=== PATIENT | male | born 1965 | race Hispanic/Latino ===

== ENCOUNTER 2024-10-29 17:47 | Emergency (ER) | payer OTHER ==
--- OUTSIDE RECORDS SUMMARY | 2024-10-29 17:51 | XMS REPORT | Continuity of Care Document ---
Author Name Unknown Address [address] [facility] [address] [place] [address] [facility] [place] Address [address] [facility] [address] [place] [address] Care Team Providers Care Senior Accounting Specialist Name Role Phone Yaya Basurto Attending Clinician Unavailable Haylie Niño Attending Clinician Unavailable Andreina Ellsworth Attending Clinician Unavailable Elvin Niño Attending Clinician Unavailable Yaya Basurto Admitting Clinician Unavailable Payers Payer Name Policy Type Policy Number Effective Date Expirati on Date Source [facility] Individual Exchange Benefit Plan [id number] 2023 00:00:00 [facility] Ambetter from [facility] [id number] [facility] Ambetter from [facility] [id number] [facility] Problems Condition Name Condition Details Condition Category Status Onset Date Resolution Date Last Treatment Date Treating Clinician Comments Source 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 Coronary artery calcificat ion Problem [facility] [id number] Ulnar neuropathy of left upper extremity Problem [facility] [id number] Sciatica of right side Problem [facility] [id number] Vitiligo Problem Active Commo n [facility] [id number] History of colon polyps Problem [facility] [id number] Diverticul osis of colon without diverticul itis Problem [facility] [id number] Mixed hyperlipid emia Problem [facility] Social History Social Habit Start Date Stop Date Quantity Comments Source History of Tobacco Use [facility] Sex Assigned At [facility] Smoking Status Start Date Stop Date Source Never Smoker [facility] Medications Ordered Medication Name Filled Medication Name Start Date Stop Date Current Medication? Ordering Clinician Indication Dosage Frequency Signature (SIG) Comments Components Source Naproxen 500 MG Naproxen 500 MG 09-19 00:00: 00 No QD Naproxen 500 MG Gabapentin 300 MG Gabapentin 300 MG 09-19 00:00: 00 No 1{capsu le} QD Gabapentin 300 MG Cyclobenzap rine HCl 10 MG Cyclobenzap rine HCl 10 MG 09-19 00:00: 00 No 1{table t_at_be dtime_a s_neede d} QD Cyclobenza susana HCl 10 MG Vital Signs Vital Name Observation Time Observation Value Comments S ource height 2024-09-19 09:45:00 70 [in_i] Commo n [facility] weight 2024-09-19 09:45:00 201 [lb_av] Comm on [facility] temperature 2024-09-19 09:45:00 97.8 [degF] Com mon [facility] bmi 2024-09-19 09:45:00 28.84 kg/m2 Comm on [facility] oximetry 2024-09-19 09:45:00 98 % Commo n [facility] respiratory rate 2024-09-19 09:45:00 16 /min [facility] blood pressure systolic 2024-09-19 09:45:00 132 mm[Hg] [facility] blood pressure diastolic 2024-09-19 09:45:00 76 mm[Hg] [facility] height 2023-12-07 12:00:00 70 [in_i] Commo n [facility] weight 2023-12-07 12:00:00 206 [lb_av] Comm on [facility] bmi 2023-12-07 12:00:00 29.55 kg/m2 Comm on [facility] height 2023-11-17 10:00:00 70 [in_i] Commo n [facility] weight 2023-11-17 10:00:00 206.8 [lb_av] Co mmon [facility] temperature 2023-11-17 10:00:00 96.5 [degF] Com mon [facility] bmi 2023-11-17 10:00:00 29.67 kg/m2 Comm on [facility] oximetry 2023-11-17 10:00:00 98 % Commo n [facility] respiratory rate 2023-11-17 10:00:00 16 /min Common [facility] blood pressure systolic 2023-11-17 10:00:00 138 mm[Hg] Common [facility] blood pressure diastolic 2023-11-17 10:00:00 80 mm[Hg] Common [facility] height 2023-08-05 08:00:00 70 [in_i] Commo n [facility] weight 2023-08-05 08:00:00 204 [lb_av] Comm on [facility] temperature 2023-08-05 08:00:00 97.8 [degF] Com mon [facility] bmi 2023-08-05 08:00:00 29.27 kg/m2 Comm on [facility] oximetry 2023-08-05 08:00:00 98 % Commo n [facility] respiratory rate 2023-08-05 08:00:00 16 /min Common [facility] blood pressure systolic 2023-08-05 08:00:00 136 mm[Hg] [facility] blood pressure diastolic 2023-08-05 08:00:00 82 mm[Hg] Common [facility] height 2020-12-03 09:00:00 70 [in_i] Commo n [facility] weight 2020-12-03 09:00:00 199.8 [lb_av] Co mmon [facility] temperature 2020-12-03 09:00:00 98.4 [degF] Com mon [facility] bmi 2020-12-03 09:00:00 28.67 kg/m2 Comm on [facility] height 2020-11-05 09:00:00 70 [in_i] Commo n [facility] weight 2020-11-05 09:00:00 199.8 [lb_av] Co mmon [facility] temperature 2020-11-05 09:00:00 97.8 [degF] Com mon [facility] bmi 2020-11-05 09:00:00 28.67 kg/m2 Comm on [facility] oximetry 2020-11-05 09:00:00 96 % Commo n [facility] blood pressure systolic 2020-11-05 09:00:00 140 mm[Hg] [facility] blood pressure diastolic 2020-11-05 09:00:00 86 mm[Hg] [facility] Encounters Start Date/Time End Date/Time Encounter Type Admission Type Attending Clinicians Care Facility Care Department Encounter ID Source 2024-06-05 10:00:00 Inpatient Yaya Hackett [facility] [place] [id number] 13 [facility] 2024-04-19 08:25:00 Outpatient Haylie Niño [facility] [id number] [facility] 2024-01-27 07:21:00 Outpatient Haylie Niño [facility] [id number] [facility] 2023-12-08 08:02:00 Outpatient Haylie Niño [facility] [id number] [facility] 2023-12-03 09:38:01 Outpatient Haylie Niño [facility] [id number] [facility] 2023-11-16 09:30:00 Outpatient Haylie Niño [facility] [id number] [facility] 2023-06-23 15:12:00 Outpatient Haylie Niño [facility] [id number] [facility] 2023-06-22 14:06:00 Outpatient [facility] [id number] [facility] 2023-06-21 10:25:03 Outpatient [facility] [id number] [facility] 2023-05-25 10:54:00 Outpatient [facility] [id number] [facility] 2021-11-05 11:47:02 Outpatient Ellsworth, Na [facility] [id number] [facility] 2021-11-04 15:11:00 Outpatient Ellsworth, Na [facility] [id number] [facility] 2021-04-09 14:04:01 Outpatient Ellsworth, Na [facility] [id number] [facility] 2021-04-09 13:51:10 Outpatient [facility] [id number] [facility] 2021-04-09 13:41:46 Outpatient [facility] [id number] [facility] 2021-04-09 13:27:06 Outpatient Elvin Niño [facility] [id number] [facility] 2024-09-19 00:00:00 2024-09-19 00:00:00 OFFICE VISIT ESTAB PT LEVEL 3 [facility] [id number] [facility] 2024-04-19 00:00:00 2024-04-19 00:00:00 (TEL) [facility] [id number] [facility] 2024-01-28 00:00:00 2024-01-28 00:00:00 (TEL) [facility] [id number] [facility] 2023-12-13 00:00:00 2023-12-13 00:00:00 (TEL) [facility] [id number] [facility] 2023-12-08 00:00:00 2023-12-08 00:00:00 (TEL) [facility] [id number] [facility] 2023-12-07 00:00:00 2023-12-07 00:00:00 OFFICE VISIT ESTAB PT LEVEL 4 [facility] [id number] [facility] 2023-11-26 00:00:00 2023-11-26 00:00:00 (TEL) [facility] [id number] [facility] 2023-11-17 00:00:00 2023-11-17 00:00:00 OFFICE VISIT ESTAB PT LEVEL 3 [facility] [id number] [facility] 2023-08-16 00:00:00 2023-08-16 00:00:00 (TEL) [facility] [id number] [facility] 2023-08-05 00:00:00 2023-08-05 00:00:00 PREV VISIT EST AGE 40-64 [facility] [id number] [facility] 2020-12-03 00:00:00 2020-12-03 00:00:00 OFFICE VISIT EST PT LEVEL 3 [facility] [id number] [facility] 2020-11-05 00:00:00 2020-11-05 00:00:00 PREV VISIT NEW AGE 40-64 [facility] [id number] [facility] Results Test Description Test Time Test Comments Results Result Co mments Source ColonoscopyColonoscopy
[2024-10-29] MEDS ORDERED: KETOROLAC 30 MG/ML INJ ONE (18:21)
[2024-10-29] MEDS ORDERED: GABAPENTIN 300 MG CAP ONE (18:22)
[2024-10-29 18:35] LABS: Absolute Lymphocytes (CBC) 2.4 K/uL (0.7-4.9); Hematocrit 46.0 % (39.6-49.0); Hemoglobin 15.6 g/dL (13.6-17.9); MCH 31.0 pg (27.0-35.0); MCHC 34.0 g/dL (32.0-36.0); MCV 91.2 fL (80-100); MPV 9.4 fL (7.6-11.3); Nucleated RBC Absolute Count 0.0 (0-0); Nucleated Red Blood Cells % 0.1 % (0-0); RBC Red Blood Cell Count 5.04 M/uL (4.33-5.43); White Blood Count 8.10 thou/uL (4.3-10.9)
[2024-10-29 18:57] LABS: Anion Gap 10.0 mEq/L (5.0-15.0); BUN Blood Urea Nitrogen 11.0 mg/dL (7-18); Glucose Level 86.0 mg/dL (74-106)
--- NOTE | 2024-10-29 19:02 | RAD REPORT ---
EXAMINATION: Pelvis Wo Cont CLINICAL INDICATION: Male, 58 years old. right low back/hip pain TECHNIQUE: CT pelvis was performed, without IV contrast, as per department protocol. Axial, sagittal and coronal reconstructions were obtained. One or more of the following dose reduction techniques were used: Automated exposure control, adjustment of the mA and/or kV according to patient size, and/ or iterative reconstruction. Unless otherwise specified, incidental findings do not require dedicated imaging follow-up. [id number]. IV CONTRAST: Not administered. COMPARISON: No prior exam. FINDINGS: SMALL BOWEL/COLON: Small bowel has normal course and caliber. No colonic wall thickening or pericolon ic inflammatory changes.Diverticulosis. LYMPH NODES: No lymphadenopathy. ABDOMINAL AORTA AND OTHER VESSELS: Normal caliber aorta and IVC. PERITONEUM: No abnormal free fluid. No free air. ABDOMINAL WALL: No significant abnormality. REPRODUCTIVE ORGANS: No pathologic process. URINARY BLADDER: Underdistended but grossly unremarkable. MUSCULOSKELETAL: No acute or suspicious osseous abnormality.Degenerative changes are present in the l ower spine at L4-5 and L5-S1 where there is bilateral neural foraminal narrowing. Mild bilateral acetabular degenerative changes. ADDITIONAL FINDINGS: None. IMPRESSION: No acute findings in the pelvis. Degenerative changes are present lower spine. This could be a source of a radiculopathy. MRI could better assess.
[2024-10-29 19:04] LABS: Potassium 4.0 mEq/L (3.5-5.1)
--- NOTE | 2024-10-29 19:23 | ER ---
Nurse's Notes [facility] Name: Keven Vargas Age: 58 yrs Sex: Male : 1965 Arrival Date: 10/29/2024 Time: 17:47 Bed 5 Private MD: Diagnosis: Lumbago with sciatica, right side Presentation: 10/29 18:11 Chief complaint: Patient states: he has been having right hip pain that radiates down ap3 his right leg for a few months. patient states his pain is "alright" right now but at its worst is a 7/10 on the pain scale. patient also reports that when he lays down to go to bed his left hand will go numb and having a burning feeling "like someone is stepping on it", also for a few months. Coronavirus screen: At this time, the client does not indicate any symptoms associated with coronavirus-19. Ebola Screen: No symptoms or risks identified at this time. Initial Sepsis Screen: Does the patient meet any 2 criteria? No. Patient's initial sepsis screen is negative. Does the patient have a suspected source of infection? No. Patient's initial sepsis screen is negative. Risk Assessment: Do you want to hurt yourself or someone else? Patient reports no desire to harm self or others. Onset of symptoms is unknown. 18:11 Method Of Arrival: Ambulatory ap3 18:11 Acuity: OBI 3 ap3 Triage Assessment: 18:13 General: Appears in no apparent distress. Behavior is calm, cooperative, appropriate ap3 for age. Pain: Complains of pain in right hip Pain radiates to right foot and right leg Pain currently is 0 out of 10 on a pain scale. at worst was 7 out of 10 on a pain scale. Pain began months ago. Neuro: Level of Consciousness is awake, alert, obeys commands, Oriented to person, place, time, situation, Appropriate for age Gait is steady, Speech is normal. Neuro: Reports numbness in left hand since months ago. Cardiovascular: Patient's skin is warm and dry. Respiratory: Airway is patent Respiratory effort is even, unlabored, Respiratory pattern is regular, symmetrical. Historical: - Allergies: 18:13 No Known Allergies; ap3 - Home Meds: 18:13 None [Active]; ap3 - PMHx: 18:13 None; ap3 - Immunization history:: Adult Immunizations up to date. - Infectious Disease History:: Denies. - Social history:: Smoking status: Patient denies any tobacco usage or history of. Screenin:14 [facility] ED Fall Risk Assessment (Adult) History of falling in the last 3 months, ap3 including since admission No falls in past 3 months (0 pts) Confusion or Disorientation No (0 pts) Intoxicated or Sedated No (0 pts) Impaired Gait No (0 pts) Mobility Assist Device Used No (0 pt) Altered Elimination No (0 pt) Score/Fall Risk Level 0 - 2 = Low Risk Oriented to surroundings, Maintained a safe environment, Educated pt \\T\\ family on fall prevention, incl call for assistance when getting out of bed, Assessed \\T\\ reinforced patient's understanding of fall precautions, Hourly rounding (assess needs \\T\\ fall precautionary measures) done, Used ambulatory aids as needed (educated on \\T\\ assisted with). Abuse screen: Denies threats or abuse. Nutritional screening: No deficits noted. Tuberculosis screening: No symptoms or risk factors identified. Assessment: 18:29 General: Appears in no apparent distress. Behavior is calm, cooperative. Pain: iw Complains of pain in right low back Pain radiates to right leg Pain currently is 6 out of 10 on a pain scale. Neuro: Level of Consciousness is awake, alert, obeys commands, Oriented to person, place, time, situation, Moves all extremities. Full function. Cardiovascular: Patient's skin is warm and dry. Respiratory: Respiratory effort is even, unlabored, Respiratory pattern is regular, symmetrical. GI: Abdomen is non-distended. Derm: Skin is intact, is healthy with good turgor. Musculoskeletal: Range of motion: intact in all extremities. Vital Signs: 18:11 BP 141 / 89; Pulse 96; Resp 18; Temp 98.4; Pulse Ox 98% on R/A; Weight 95.25 kg; ap3 19:27 BP 131 / 82; Pulse 73; Resp 18; Pulse Ox 98% ; cp4 ED Course: 17:51 Patient arrived in ED. ts1 17:51 Ro Barros PA-C is PHCP. sb4 17:51 Raghav Abad MD is Attending Physician. sb4 18:09 Alma Keane RN is Primary Nurse. iw 18:13 Triage completed. ap3 18:15 Arm band placed on right wrist. ap3 18:28 Initial lab(s) drawn, by me, sent to lab. Inserted saline lock: 20 gauge in right iw antecubital area, using aseptic technique. 18:[address] In Process Unspecified. EDMS 19:32 IV discontinued, intact, bleeding controlled, No redness/swelling at site. Pressure rk3 dressing applied. 19:38 Bed in low position. Call light in reach. Side rails up X 1. Provided Education on: cp4 sciatica. 19:38 No provider procedures requiring assistance completed. cp4 Administered Medications: 18:35 Drug: Gabapentin PO 300 mg PO once Route: PO; jl7 19:03 Follow up: Response: No adverse reaction iw 18:36 Drug: Ketorolac IVP 15 mg IVP once Route: IVP; Site: right antecubital; jl7 19:03 Follow up: Response: No adverse reaction; Marked relief of symptoms iw 18:37 Drug: Decadron - Dexamethasone IVP 10 mg IVP once Route: IVP; Site: right antecubital; jl7 19:03 Follow up: Response: No adverse reaction iw 19:27 Drug: Hydrocodone-Acetaminophen PO (7.5 mg-325 mg) 1 tabs PO once Route: PO; cp4 19:28 Follow up: Response: No adverse reaction cp4 19:27 Drug: Diazepam PO 2 mg PO once Route: PO; cp4 19:28 Follow up: Response: No adverse reaction cp4 Medication: 18:31 VIS not applicable for this client. iw Outcome: 19:23 Discharge ordered by . sb4 19:38 Discharged to home ambulatory, cp4 19:38 Condition: stable 19:38 Discharge instructions given to patient, family, Instructed on discharge instructions, follow up and referral plans. medication usage, Demonstrated understanding of instructions, follow-up care, medications, Prescriptions given X 3, 19:39 Patient left the ED. cp4 Signatures: Dispatcher [employer] EDMS Alma Keane RN RN iw Marilin Anderson RN RN jl7 Neha Garcia RN RN ap3 Ro Barros, PA-C PA-C sb4 Rachell Rocha PAS PAS ts1 Erin Myers cp4 Reji Asif rk3 Corrections: (The following items were deleted from the chart) 18:13 18:13 Allergies: Aspirin; ap3 ap3
[2024-10-29] MEDS ORDERED: DIAZEPAM 2 MG TABLET ONE (19:24)
[2024-10-29] MEDS ORDERED: HYDROCODONE/APAP 7.5/325 MG TAB ONE (19:24)
--- NOTE | 2024-10-29 19:24 | EDPHYS ---
Physician Documentation [facility] Name: Keven Vargas Age: 58 yrs Sex: Male : 1965 Arrival Date: 10/29/2024 Time: 17:47 Bed 5 Private MD: ED Physician Raghav Abad HPI: 10/29 18:26 This 58 yrs old Male presents to ER via Ambulatory with complaints of Leg Pain.sb4 18:26 Patient reports pain in his right lower back/hip for several months now that radiates sb4 down his leg. States that he saw his primary care, was diagnosed with sciatica, and given exercises to do and told to take anti-inflammatories. He states that these remedies do help sometimes, but the pain has persisted and it gets to the point where he cannot walk sometimes. Denies any bowel or bladder incontinence or saddle paresthesias. Does report intermittent numbness and tingling in his left hand. Historical: - Allergies: 18:13 No Known Allergies; ap3 - Home Meds: 18:13 None [Active]; ap3 - PMHx: 18:13 None; ap3 - Immunization history:: Adult Immunizations up to date. - Infectious Disease History:: Denies. - Social history:: Smoking status: Patient denies any tobacco usage or history of. ROS: 18:26 Constitutional: Negative for fever, chills, and weight loss, sb4 18:26 Back: Positive for pain at rest, radiated pain, of the right low back, 18:26 All other systems are negative, Exam: 18:26 Constitutional: This is a well developed, well nourished patient who is awake, alert, sb4 and in no acute distress. Head/Face: Normocephalic, atraumatic. Eyes: Extra-ocular motions intact. Periorbital areas with no swelling, redness, or edema. ENT: Mucous membranes moist. Respiratory: No increased work of breathing, no retractions or nasal flaring. Back: No spinal tenderness. No costovertebral tenderness. Full range of motion. Skin: Warm, dry with normal turgor. Normal color with no rashes, no lesions, and no evidence of cellulitis. Neuro: Awake and alert, GCS 15, oriented to person, place, time, and situation. Motor strength 5/5 in all extremities. Sensory grossly intact. 18:26 Back: normal spinal alignment noted, vertebral tenderness, is not appreciated, muscle spasm, is not present, Straight leg raises: of both lower extremities does not illicit pain, Vital Signs: 18:11 BP 141 / 89; Pulse 96; Resp 18; Temp 98.4; Pulse Ox 98% on R/A; Weight 95.25 kg; ap3 19:27 BP 131 / 82; Pulse 73; Resp 18; Pulse Ox 98% ; cp4 MDM: 17:51 Medical Screening Exam initiated sb4 18:29 Differential diagnosis: Sciatica, muscle strain, radiculopathy, herniated disc, sb4 fracture. 19:22 Data reviewed: vital signs, nurses notes, lab test result(s), radiologic studies, and sb4 as a result, I will discharge patient. Historians other than the Patient: Spouse/Significant Other: . Counseling: I had a detailed discussion with the patient and/or guardian regarding the historical points, exam findings, and any diagnostic results supporting the discharge/admit diagnosis, the presence of at least one elevated blood pressure reading (>120/80) during this emergency department visit, lab results, radiology results, the need for outpatient follow up, a neurosurgeon, to return to the emergency department if symptoms worsen or persist or if there are any questions or concerns that arise at home. 10/29 18:14 Order name: CBC with Diff; Complete Time: 18:38 sb4 10/29 18:14 Order name: BMP; Complete Time: 19:10 sb4 10/29 18:14 Order name: UA Rfx Henry Cult if indicated sb4 10/29 18:14 Order name: Pelvis Wo Cont CT; Complete Time: 19:10 sb4 10/29 18:14 Order name: IV Start; Complete Time: 18:31 sb4 Administered Medications: 18:35 Drug: Gabapentin PO 300 mg PO once Route: PO; jl7 19:03 Follow up: Response: No adverse reaction iw 18:36 Drug: Ketorolac IVP 15 mg IVP once Route: IVP; Site: right antecubital; jl7 19:03 Follow up: Response: No adverse reaction; Marked relief of symptoms iw 18:37 Drug: Decadron - Dexamethasone IVP 10 mg IVP once Route: IVP; Site: right antecubital; jl7 19:03 Follow up: Response: No adverse reaction iw 19:27 Drug: Hydrocodone-Acetaminophen PO (7.5 mg-325 mg) 1 tabs PO once Route: PO; cp4 19:28 Follow up: Response: No adverse reaction cp4 19:27 Drug: Diazepam PO 2 mg PO once Route: PO; cp4 19:28 Follow up: Response: No adverse reaction cp4 Disposition Summary: 10/29/24 19:23 Discharge Ordered Notes: Location: Home sb4 Problem: an ongoing problem sb4 Symptoms: have improved sb4 Condition: Stable sb4 Diagnosis - Lumbago with sciatica, right side sb4 Followup: sb4 - With: Private Physician - When: As needed - Reason: Further diagnostic work-up, Recheck today's complaints, Re-evaluation by your physician Discharge Instructions: - Discharge Summary Sheet sb4 - Sciatica sb4 - Back Exercises, Izex-ix-Joje sb4 Forms: - Patient Portal Instructions sb4 - Leadership Thank You Letter sb4 Prescriptions: - Prednisone 20 mg Oral Tablet - take 1 tablet ORAL route once daily for 5 days; 5 tablet; Refills: 0, Product sb4 Selection Permitted - Diclofenac Sodium 75 mg Oral Tablet Sustained Release - take 1 tablet ORAL route 2 times per day; 30 tablet; Refills: 0, Product sb4 Selection Permitted - methocarbamol 750 mg Oral tablet - take 1 tablet ORAL route 4 times per day; 20 tablet; Refills: 0, Product sb4 Selection Permitted Signatures: Dispatcher [employer] EDMS Marilin Anderson RN RN jl7 Neha Garcia RN RN joel3 Ro Barros PA-C PASandy sb4 Erin Myers 4 Alma Keane RN iw Corrections: (The following items were deleted from the chart) 18:13 18:13 Allergies: Aspirin; ap3 ap3 18:14 18:14 CBC+H.LAB.BRZ ordered. EDMS EDMS 18:14 18:14 BASIC METABOLIC PANEL+C.LAB.BRZ ordered. EDMS EDMS 18:14 18:14 UA Rfx Henry Cult if indicated+U.LAB.BRZ ordered. EDMS EDMS
[2024-10-30 01:29] VITALS: TEMP 98.4; O2SAT 98
[2024-10-30 01:30] VITALS: BP 131/82
== END 2024-10-29 19:39 | disposition home or self-care (01) ==
LOC: ER 17:47
DX: M54.41 Lumbago with sciatica, right side (principal)
CPT/HCPCS: 85025; 80048; 36415; 72192; 96375; 96374; 99284; J1100